=== PATIENT | male | born 1975 | race Caucasian/White ===

== ENCOUNTER → 2016-06-13 | Outpatient (CLI) | payer OTHER, MEDICAID ==
[2015-07-05 00:42] VITALS: BP 110/64
[2016-06-13 13:25] LABS: CREATININE,URINE 245.39 mg/dL (40-278)
[2016-06-13 13:26] LABS: BASOPHILS # (AUTO) 0.1 X10^3/uL (0.0-0.1); BASOPHILS % (AUTO) 1.2 % (0.2-1.0); EOSINOPHILS # (AUTO) 0.3 x10^3/uL (0.0-0.2); EOSINOPHILS % (AUTO) 2.3 % (0.9-2.9); HEMATOCRIT 46.9 % (42.0-54.0); HEMOGLOBIN 16.1 g/dL (13.5-18.0); LYMPHOCYTES # (AUTO) 2.4 X10^3/uL (1.3-2.9); LYMPHOCYTES % (AUTO) 21.4 % (21.0-51.0); MEAN CORPUSCULAR HEMOGLOBIN 28.5 pg (27.0-34.0); MEAN CORPUSCULAR HGB CONC 34.3 g/dL (33.0-35.0); MEAN PLATELET VOLUME 6.9 fL (7.4-11.0); MONOCYTES # (AUTO) 0.8 x10^3/uL (0.3-0.8); MONOCYTES % (AUTO) 7.3 % (0.0-13.0); NEUTROPHILS # (AUTO) 7.5 x10^3/uL (2.2-4.8); NEUTROPHILS % (AUTO) 67.8 % (42.0-75.0); PLATELET COUNT 209 X10^3/uL (150.0-450.0); RED BLOOD COUNT 5.65 X10^6/uL (4.7-6.0); RED CELL DISTRIBUTION WIDTH 13.8 % (11.6-16.5); WHITE BLOOD COUNT 11.1 X10^3/uL (3.6-10.0)
[2016-06-13 13:29] LABS: HEMOGLOBIN A1C 6.2 % (4.5-6.2)
[2016-06-13 13:33] LABS: MICROALBUMIN,URINE 8.1 mg/L
[2016-06-13 13:34] LABS: ALANINE AMINOTRANSFERASE 37 Units/L (12-78); ALBUMIN 4.1 g/dL (3.4-5.0); ALKALINE PHOSPHATASE 91 Units/L (46-116); ASPARTATE AMINO TRANSFERASE 18 Units/L (15-37); BLOOD UREA NITROGEN 15 mg/dL (7-18); CALCIUM 9.1 mg/dL (8.5-10.1); CARBON DIOXIDE 25.3 mmol/L (21-32); CHLORIDE 103 mmol/L (98-107); CHOL/HDL RATIO 8.7 (0.0-5.0); CHOLESTEROL 235 mg/dL (0-200); COR NA(FOR HYPERGLY) 137 mmol/L (136-145); GLUCOSE 118 mg/dL (65-99); HDL CHOLESTEROL 27 mg/dL (40-60); SODIUM 137 mmol/L (136-145); TOTAL PROTEIN 7.5 g/dL (6.4-8.2); TRIGLYCERIDES 275 mg/dL (0-150); eGFR BLACK RACES > 60 (>60); eGFR NON BLACK RACES > 60 (>60)
== END ==
LOC: LAB 12:31
PROVIDERS: ATTEND Obstetrics & Gynecology Obstetrics
DX: E11.9 Type 2 diabetes mellitus without complications (principal)
CPT/HCPCS: 36415; 80053; 80061; 82043; 83036; 85025

== ENCOUNTER 2018-03-09 23:59 | Inpatient (IN) ==
[2018-03-10 00:08] VITALS: BMI 38.4
[2018-03-10] MEDS ORDERED: ZOFRAN INJ 4 MG VIAL ONE (00:11)
[2018-03-10] MEDS ORDERED: ZOFRAN INJ 4 MG VIAL IVP ONE (00:11)
[2018-03-10 00:28] LABS: BASOPHILS # (AUTO) 0.1 X10^3/uL (0.0-0.1); BASOPHILS % (AUTO) 0.6 % (0.2-1.0); EOSINOPHILS # (AUTO) 0.2 x10^3/uL (0.0-0.2); EOSINOPHILS % (AUTO) 1.1 % (0.9-2.9); HEMATOCRIT 50.7 % (42.0-54.0); HEMOGLOBIN 17.2 g/dL (13.5-18.0); LYMPHOCYTES # (AUTO) 1.8 X10^3/uL (1.3-2.9); LYMPHOCYTES % (AUTO) 10.4 % (21.0-51.0); MEAN CORPUSCULAR HEMOGLOBIN 29.7 pg (27.0-34.0); MEAN CORPUSCULAR HGB CONC 33.9 g/dL (33.0-35.0); MEAN CORPUSCULAR VOLUME 87.7 fL (80.0-100.0); MEAN PLATELET VOLUME 7.6 fL (7.4-11.0); MONOCYTES # (AUTO) 1.3 x10^3/uL (0.3-0.8); MONOCYTES % (AUTO) 7.5 % (0.0-13.0); NEUTROPHILS # (AUTO) 14.1 x10^3/uL (2.2-4.8); NEUTROPHILS % (AUTO) 80.4 % (42.0-75.0); PLATELET COUNT 240 X10^3/uL (150.0-450.0); RED BLOOD COUNT 5.78 X10^6/uL (4.7-6.0); WHITE BLOOD COUNT 17.5 X10^3/uL (3.6-10.0)
[2018-03-10] MEDS ORDERED: LEVSIN/MAALOX/LIDOC VISC ONE (00:40)
[2018-03-10] MEDS ORDERED: LEVSIN/MAALOX/LIDOC VISC PO ONE (00:43)
[2018-03-10 00:46] LABS: BLOOD UREA NITROGEN 10 mg/dL (7-18); CALCIUM 8.5 mg/dL (8.5-10.1); CARBON DIOXIDE 23.9 mmol/L (21-32); CHLORIDE 108 mmol/L (98-107); COR NA(FOR HYPERGLY) 147 mmol/L (136-145); SODIUM 143 mmol/L (136-145); TROPONIN I < 0.02 ng/mL (0-1.5); eGFR NON BLACK RACES > 60 (>60)
[2018-03-10 00:51] LABS: ALANINE AMINOTRANSFERASE 326 Units/L (12-78); ALBUMIN 3.6 g/dL (3.4-5.0); ALKALINE PHOSPHATASE 126 Units/L (46-116); ASPARTATE AMINO TRANSFERASE 315 Units/L (15-37); CKMB % 1.4 % (<4); CREATINE KINASE 101 Units/L (39-308); CREATINE KINASE MB 1.4 ng/mL (0-4.0); TOTAL PROTEIN 6.7 g/dL (6.4-8.2)
--- NOTE | 2018-03-10 01:36 | RAD ---
Acute abdominal series with single-view chest Indication: Vomiting, abdominal pain Comparison: 11/02/2017 Findings: The heart size is normal and the lungs are clear. No significant pleural abnormality. The bowel gas pattern is nonspecific. No significantly dilated bowel loops identified. No suspicious calcifications or gross free air. Impression: No acute process. Reported By:
[2018-03-10] MEDS ORDERED: MORPHINE SULFATE INJ 4 MG IVP ONE (01:58)
[2018-03-10] MEDS ORDERED: MORPHINE SULFATE INJ 4 MG ONE (02:00)
--- NOTE | 2018-03-10 02:00 | DR.ABDMALE ---
HPI Time seen Time Seen by Provider: 03/10/18 00:39 PCP Primary Care Physician: TRENTON HPI comment HPI Comment: HISTORY OF PACREATITIS IN OCTOBER THIS YEAR. SIMILAR PAIN THAT STARTED TODAY. PAIN ASSOCIATED WITH NAUSEA AND VOMITING. NO DYSURIA OR FEVER. PAIN IS GETTING WORSE. Complaint Chief Complaint Doctors Comments: SEVERE UPPER ABDOMINAL PAIN WITH NAUSEA AND VOMITING. Chief Complaint:: " MY STOMACH HURTS IN MY UPPER STOMACH I CANT EXPLAIN IT." Reviewed Nurses Notes Review: Yes Mode of arrival Mode of Arrival: Ambulatory Timing Onset of Chief Complaint: 03/10/18 Came on: Suddenly Duration Duration: Constant Duration: Days Location Location: RUQ, LUQ and Epigastric Severity Severity: Moderate Quality Quality: Sharp Context Onset: Suddenly and At Rest History of: None Modifying factors Worsening Factors: Exertion, Food and Movement Improving Factors: Lying Still Associated signs and symptoms Associated Signs and Symptoms: Nausea and Vomiting PMH PMH Past Medical History: Yes Past Medical History: Diabetes and GERD Past Surgical History: No Surgical History: Unknown Family History History of Family Medical Conditions: Yes Family Medical History: Diabetes Mellitus and Cancer Social History Alcohol Use: None Do you use any recreational Drugs:: No infectious screening Have you traveled outside the country in the last 6 months?: No ROS Review of Systems Constitutional: Weakness, Fatigue and Loss of Appetite; negative Chills and Fev er Eyes: No Symptoms Reported ENTM: No Symptoms Reported Respiratoy: No Symptoms Reported Cardiovascular: No Symptoms Reported Gastrointestinal/Abdominal: Abdominal Pain, Nausea and Vomiting Genitourinary: No Symptoms Reported Neurological: Headache and Weakness Musculoskeletal: No Symptoms Reported Integumentary: No Symptoms Reported Hematologic/Lymphatic: No Symptoms Reported Endocrine: No Symptoms Reported Psychiatric: No Symptoms Reported All Other Systems: Reviewed and Negative PE Vital Signs Vital Signs: Temp Pulse Pulse Pulse Resp BP BP 03/10/18 06:06 98.5 F 74 18 132/78 03/10/18 05:00 67 20 03/10/18 00:03 98.4 F 87 20 107/75 11/02/17 19:52 135/72 BP Pulse Ox 03/10/18 06:06 03/10/18 05:00 129/82 97 03/10/18 00:03 99 11/02/17 19:52 135/72 General Limitations: No Limitations (PATIENT IN PAIN.) General Appearance: Alert, In No Apparent Distress and Anxious Head Head Exam: Normal Inspection Eyes Eye exam: Normal Appearance, PERRL, EOMI and Conjunctival Injection ENT ENT Exam: Normal Oropharynx, Normal External Ear Exam and TM's Normal Bilaterally Neck Neck Exam: Trachea Midline; negative Tenderness, Meningismus and Lymphadenopathy Chest Chest Inspection: Symmetric Chest Wall Rise Respiratory Respiratory Exam: Normal Lung Sounds Bilat Respiratory Exam: Bilateral: Clear to Auscultation Cardiovascular Cardiovascular Exam: Regular Rate and Normal Rhythm Abdominal Exam Abdominal Exam: Normal Bowel Sounds, Soft and Tenderness Abdominal Tenderness: RUQ, LUQ, Epigastrium and Moderate Rectal Rectal Exam: Deferred Back Back Exam: Normal Inspection Extremeties Extremities Exam: Normal Inspection and Normal Capillary Refill Exam: Male: Deferred Neurologic Neurological Exam: Alert, Oriented X3 and CN II-XII Intact; negative Motor Se nsory Deficit Psychiatric Psychiatric Exam: Normal Affect and Anxious Skin Skin Exam: Dry MDM Differential Diagnosis Differential Diagnosis: Bowel Obstruction, Cholcystitis, Cholelethiasis, Constipation, Diverticular disease, Gastritus/PUD, Pancreatitis, Urinary tract infection and Urolithiasis COURSE Treatment Treatment: SEE ORDERS. Reevaluation 1st: Improved Consultation Consultation Comments: DISCUSS PATIENT WITH DR. CHOWDHURY. HE WILL ADMIT PATIENT. Education/Counseling Education/Counseling: Patient Educated On: Diagnosis ROR Labs Reviewed Laboratory Results Reviewed?: Yes Result Diagrams: 03/10/18 00:08 03/10/18 00:08 Laboratory: WBC 17.5 X10^3/uL (3.6-10.0) H 03/10/18 00:08 RBC 5.78 X10^6/uL (4.7-6.0) 03/10/18 00:08 Hgb 17.2 g/dL (13.5-18.0) 03/10/18 00:08 Hct 50.7 % (42.0-54.0) 03/10/18 00:08 MCV 87.7 fL (80.0-100.0) 03/10/18 00:08 MCH 29.7 pg (27.0-34.0) 03/10/18 00:08 MCHC 33.9 g/dL (33.0-35.0) 03/10/18 00:08 RDW 14.0 % (11.6-16.5) 03/10/18 00:08 Plt Count 240 X10^3/uL (150.0-450.0) 03/10/18 00:08 MPV 7.6 fL (7.4-11.0) 03/10/18 00:08 Neut % (Auto) 80.4 % (42.0-75.0) H 03/10/18 00:08 Lymph % (Auto) 10.4 % (21.0-51.0) L 03/10/18 00:08 [place] % (Auto) 7.5 % (0.0-13.0) 03/10/18 00:08 Eos % (Auto) 1.1 % (0.9-2.9) 03/10/18 00:08 Baso % (Auto) 0.6 % (0.2-1.0) 03/10/18 00:08 Neut # (Auto) 14.1 x10^3/uL (2.2-4.8) H 03/10/18 00:08 Lymph # (Auto) 1.8 X10^3/uL (1.3-2.9) 03/10/18 00:08 [place] # (Auto) 1.3 x10^3/uL (0.3-0.8) H 03/10/18 00:08 Eos # (Auto) 0.2 x10^3/uL (0.0-0.2) 03/10/18 00:08 Baso # (Auto) 0.1 X10^3/uL (0.0-0.1) 03/10/18 00:08 Absolute Nucleated RBC 0.1 /100WBC 03/10/18 00:08 Sodium 143 mmol/L (136-145) 03/10/18 00:08 Corrected Sodium 147 mmol/L (136-145) H 03/10/18 00:08 Potassium 3.6 mmol/L (3.5-5.1) 03/10/18 00:08 Chloride 108 mmol/L (98-107) H 03/10/18 00:08 Carbon Dioxide 23.9 mmol/L (21-32) 03/10/18 00:08 BUN 10 mg/dL (7-18) 03/10/18 00:08 Creatinine 1.00 mg/dL (0.70-1.30) 03/10/18 00:08 Est GFR (MDRD) Af Amer > 60 (>60) 03/10/18 00:08 Est GFR (MDRD) Non-Af > 60 (>60) 03/10/18 00:08 Glucose 250 mg/dL (65-99) H 03/10/18 00:08 POC Glucose (mg/dL) 167 mg/dL (65-99) H 03/10/18 06:01 Calcium 8.5 mg/dL (8.5-10.1) 03/10/18 00:08 Corrected Calcium TNP 03/10/18 00:08 Total Bilirubin 2.80 mg/dL (0.2-1.0) H 03/10/18 00:08 AST 315 Units/L (15-37) H 03/10/18 00:08 ALT 326 Units/L (12-78) H 03/10/18 00:08 Alkaline Phosphatase 126 Units/L (46-116) H 03/10/18 00:08 Creatine Kinase 101 Units/L (39-308) 03/10/18 00:08 CK-MB (CK-2) 1.4 ng/mL (0-4.0) 03/10/18 00:08 CK/CKMB % Calc 1.4 % (<4) 03/10/18 00:08 Troponin I < 0.02 ng/mL (0-1.5) 03/10/18 00:08 Total Protein 6.7 g/dL (6.4-8.2) 03/10/18 00:08 Albumin 3.6 g/dL (3.4-5.0) 03/10/18 00:08 Globulin 3.1 g/dL (2.5-4.5) 03/10/18 00:08 Albumin/Globulin Ratio 1.2 Ratio (1.1-2.1) 03/10/18 00:08 Amylase 821 Units/L (25-115) H 03/10/18 00:08 Lipase 92209 Units/L (73-393) H 03/10/18 00:08 Specimen Type Clean catch urine 03/10/18 03:23 Urine Color Dark yellow (YELLOW) 03/10/18 03:23 Urine Appearance Clear (CLEAR) 03/10/18 03:23 Urine pH 5.0 (5.0 - 8.0) 03/10/18 03:23 Ur Specific [place] 1.020 (1.000-1.030) 03/10/18 03:23 Urine Protein 1+ (NEGATIVE) 03/10/18 03:23 Urine Glucose (UA) 4+ (NEGATIVE) 03/10/18 03:23 Urine Ketones Negative (NEGATIVE) 03/10/18 03:23 Urine Occult Blood Negative (NEGATIVE) 03/10/18 03:23 Urine Nitrite Negative (NEGATIVE) 03/10/18 03:23 Urine Bilirubin 1+ (NEGATIVE) 03/10/18 03:23 Urine Urobilinogen 1+ (NORMAL) 03/10/18 03:23 Ur Leukocyte Esterase Negative (NEGATIVE) 03/10/18 03:23 Urine RBC 0-2 /HPF (NONE SEEN) 03/10/18 03:23 Urine WBC 0-2 /HPF (NONE SEEN) 03/10/18 03:23 Ur Squamous Epith Cells Few /HPF (NEGATIVE) 03/10/18 03:23 Urine Bacteria Trace /HPF (NEGATIVE) 03/10/18 03:23 Ur Culture Indicated? No/not indicated 03/10/18 03:23 XRAY XRAY Interpreted by: Radiologist XRAY Findings: REPORT DISCUSS WITH PATIENT.
[2018-03-10 03:33] LABS: BILIRUBIN,URINE 1+ (NEGATIVE); BLOOD/HEMOGLOBIN,URINE NEGATIVE (NEGATIVE); GLUCOSE, URINE 4+ (NEGATIVE); KETONES,URINE NEGATIVE (NEGATIVE); LEUKOCYTE ESTERASE ,URINE NEGATIVE (NEGATIVE); NITRITES,URINE NEGATIVE (NEGATIVE); PROTEIN,URINE 1+ (NEGATIVE); UROBILINOGEN,URINE 1+ (NORMAL)
[2018-03-10 03:42] LABS: APPEARANCE,URINE CLEAR (CLEAR); COLOR,URINE DARK YELLOW (YELLOW); RBC,URINE 0-2 /HPF (NONE SEEN)
[2018-03-10 03:43] LABS: BACTERIA,URINE TRACE /HPF (NEGATIVE); SQUAMOUS EPITHELIAL CELL,UR FEW /HPF (NEGATIVE)
[2018-03-10 04:12] LABS: AMYLASE 821 Units/L (25-115); LIPASE 28763 Units/L (73-393)
[2018-03-10] MEDS ORDERED: ZOFRAN INJ 4 MG VIAL IVP PRN (05:16)
[2018-03-10] MEDS ORDERED: PEPCID 20 MG IV PREMIX* 20 MG/50 ML BAG IV PRN (05:16)
[2018-03-10] MEDS ORDERED: NS 1000 ML 1,000 ML ONE (05:26)
[2018-03-10] MEDS ORDERED: PATIENT'S HOME MEDICATION (Dexlansoprazole [Dexlansoprazole] 60 MG) PO SCH (05:59)
[2018-03-10] MEDS: NS 1000 ML 1,000 ML IV SCH ×3 (06:09→23:56)
[2018-03-10] MEDS: MORPHINE SULFATE INJ 2 MG INJ IVP PRN (06:25)
[2018-03-10 06:41] LABS: AMYLASE 391 Units/L (25-115)
[2018-03-10 07:44] LABS: LIPASE 9399 Units/L (73-393)
[2018-03-10] MEDS ORDERED: ASTELIN NASAL SPRAY ENOSTRIL ONE (08:51)
[2018-03-10] MEDS ORDERED: ASTELIN NASAL SPRAY ENOSTRIL SCH (09:00)
[2018-03-10] MEDS ORDERED: FLONASE NASAL SPRAY ENOSTRIL SCH (09:00)
[2018-03-10] MEDS: PROTONIX TAB 40 MG PO SCH (09:18)
[2018-03-10] MEDS: FLONASE NASAL SPRAY ENOSTRIL SCH (09:18)
[2018-03-10] MEDS: ASTELIN NASAL SPRAY ENOSTRIL SCH (09:18)
[2018-03-10] MEDS ORDERED: GLUCOPHAGE ONE ×2 (10:40→20:47)
[2018-03-10] MEDS: ACTOS PO SCH (10:57)
[2018-03-10] MEDS: GLUCOPHAGE PO SCH ×2 (10:58→20:43)
[2018-03-10] MEDS ORDERED: TYLENOL 325 MG TAB PO PRN (23:48)
[2018-03-10] MEDS ORDERED: TYLENOL 325 MG TAB PO ONE (23:53)
[2018-03-11] MEDS: NS 1000 ML 1,000 ML IV SCH ×3 (05:25→23:00)
[2018-03-11 05:28] LABS: BASOPHILS # (AUTO) 0.1 X10^3/uL (0.0-0.1); BASOPHILS % (AUTO) 0.7 % (0.2-1.0); EOSINOPHILS # (AUTO) 0.1 x10^3/uL (0.0-0.2); EOSINOPHILS % (AUTO) 0.9 % (0.9-2.9); HEMATOCRIT 47.2 % (42.0-54.0); LYMPHOCYTES # (AUTO) 1.6 X10^3/uL (1.3-2.9); LYMPHOCYTES % (AUTO) 12.7 % (21.0-51.0); MEAN CORPUSCULAR HEMOGLOBIN 29.5 pg (27.0-34.0); MEAN CORPUSCULAR HGB CONC 33.9 g/dL (33.0-35.0); MEAN CORPUSCULAR VOLUME 86.9 fL (80.0-100.0); MEAN PLATELET VOLUME 7.2 fL (7.4-11.0); MONOCYTES % (AUTO) 8.1 % (0.0-13.0); NEUTROPHILS # (AUTO) 9.9 x10^3/uL (2.2-4.8); NEUTROPHILS % (AUTO) 77.6 % (42.0-75.0); PLATELET COUNT 185 X10^3/uL (150.0-450.0); RED BLOOD COUNT 5.44 X10^6/uL (4.7-6.0); RED CELL DISTRIBUTION WIDTH 13.6 % (11.6-16.5); WHITE BLOOD COUNT 12.8 X10^3/uL (3.6-10.0)
[2018-03-11 05:44] LABS: ALANINE AMINOTRANSFERASE 182 Units/L (12-78); ALBUMIN 3.2 g/dL (3.4-5.0); ALKALINE PHOSPHATASE 117 Units/L (46-116); AMYLASE 168 Units/L (25-115); ASPARTATE AMINO TRANSFERASE 46 Units/L (15-37); BLOOD UREA NITROGEN 9 mg/dL (7-18); CALCIUM 8.5 mg/dL (8.5-10.1); CARBON DIOXIDE 25.4 mmol/L (21-32); CHLORIDE 106 mmol/L (98-107); COR CA(FOR HYPOALB) 9.1 mg/dL (8.5-10.1); CREATININE 0.86 mg/dL (0.70-1.30); SODIUM 140 mmol/L (136-145); TOTAL PROTEIN 6.2 g/dL (6.4-8.2); eGFR NON BLACK RACES > 60 (>60)
[2018-03-11 05:47] LABS: LIPASE 1781 Units/L (73-393)
[2018-03-11] MEDS ORDERED: GLUCOPHAGE ONE ×2 (07:44→20:23)
[2018-03-11] MEDS: FLONASE NASAL SPRAY ENOSTRIL SCH (08:10)
[2018-03-11] MEDS: GLUCOPHAGE PO SCH ×2 (08:10→20:28)
[2018-03-11] MEDS: ACTOS PO SCH (08:10)
[2018-03-11] MEDS: PROTONIX TAB 40 MG PO SCH (08:10)
[2018-03-11] MEDS: ASTELIN NASAL SPRAY ENOSTRIL SCH (08:10)
[2018-03-12] MEDS: MORPHINE SULFATE INJ 2 MG INJ IVP PRN (00:58)
[2018-03-12 06:13] LABS: BASOPHILS # (AUTO) 0.1 X10^3/uL (0.0-0.1); BASOPHILS % (AUTO) 0.6 % (0.2-1.0); EOSINOPHILS # (AUTO) 0.2 x10^3/uL (0.0-0.2); EOSINOPHILS % (AUTO) 1.8 % (0.9-2.9); HEMATOCRIT 46.8 % (42.0-54.0); HEMOGLOBIN 16.1 g/dL (13.5-18.0); LYMPHOCYTES % (AUTO) 15.9 % (21.0-51.0); MEAN CORPUSCULAR HEMOGLOBIN 29.6 pg (27.0-34.0); MEAN CORPUSCULAR HGB CONC 34.3 g/dL (33.0-35.0); MEAN CORPUSCULAR VOLUME 86.2 fL (80.0-100.0); MEAN PLATELET VOLUME 7.6 fL (7.4-11.0); MONOCYTES # (AUTO) 1.3 x10^3/uL (0.3-0.8); MONOCYTES % (AUTO) 10.1 % (0.0-13.0); NEUTROPHILS # (AUTO) 9.1 x10^3/uL (2.2-4.8); NEUTROPHILS % (AUTO) 71.6 % (42.0-75.0); PLATELET COUNT 201 X10^3/uL (150.0-450.0); RED BLOOD COUNT 5.43 X10^6/uL (4.7-6.0); WHITE BLOOD COUNT 12.7 X10^3/uL (3.6-10.0)
[2018-03-12 06:22] LABS: ALANINE AMINOTRANSFERASE 116 Units/L (12-78); ALBUMIN 3.4 g/dL (3.4-5.0); ALKALINE PHOSPHATASE 121 Units/L (46-116); AMYLASE 58 Units/L (25-115); ASPARTATE AMINO TRANSFERASE 18 Units/L (15-37); BLOOD UREA NITROGEN 7 mg/dL (7-18); CALCIUM 9.1 mg/dL (8.5-10.1); CARBON DIOXIDE 24.8 mmol/L (21-32); CHLORIDE 104 mmol/L (98-107); CREATININE 0.84 mg/dL (0.70-1.30); LIPASE 540 Units/L (73-393); SODIUM 138 mmol/L (136-145); TOTAL PROTEIN 7.1 g/dL (6.4-8.2); eGFR NON BLACK RACES > 60 (>60)
[2018-03-12] MEDS: NS 1000 ML 1,000 ML IV SCH (06:47)
[2018-03-12] MEDS ORDERED: GLUCOPHAGE ONE (08:19)
[2018-03-12] MEDS: PROTONIX TAB 40 MG PO SCH (08:53)
[2018-03-12] MEDS: ACTOS PO SCH (08:54)
[2018-03-12] MEDS: GLUCOPHAGE PO SCH (08:54)
[2018-03-12] MEDS: FLONASE NASAL SPRAY ENOSTRIL SCH (08:55)
[2018-03-12] MEDS: ASTELIN NASAL SPRAY ENOSTRIL SCH (08:55)
[2018-03-12 13:35] VITALS: BP 113/67
== END 2018-03-12 13:00 | disposition home or self-care (01) | DRG 440 ==
LOC: ER 23:59 → MED/SURG 03-10 05:10
PROVIDERS: ADMIT Obstetrics & Gynecology Obstetrics; ATTEND Obstetrics & Gynecology Obstetrics
DX: K21.9 Gastro-esophageal reflux disease without esophagitis; R11.2 Nausea with vomiting, unspecified; R10.13 Epigastric pain; R82.998 Other abnormal findings in urine; E11.8 Type 2 diabetes mellitus with unspecified complications; M54.9 Dorsalgia, unspecified; K85.90 Acute pancreatitis without necrosis or infection, unspecified; I10 Essential (primary) hypertension
CPT/HCPCS: 36415; 74022; 80053; 81001; 82150; 82550; 82553; 83690; 84484; 85025; 96365; 96374; 96375; 99284; A4222; S0028; J2270; J2405; J3490; J7030

== ENCOUNTER 2018-06-23 13:00 | Inpatient (IN) ==
[2018-06-23 13:09] VITALS: BMI 34.7
[2018-06-23] MEDS ORDERED: ZOFRAN INJ 4 MG VIAL ONE (13:12)
[2018-06-23] MEDS ORDERED: DEMEROL INJ IVP ONE (13:12)
[2018-06-23] MEDS ORDERED: NS 1000 ML 1,000 ML IV ONE ×2 (13:12→13:13)
[2018-06-23] MEDS ORDERED: DEMEROL INJ ONE ×2 (13:13→15:20)
[2018-06-23] MEDS ORDERED: ZOFRAN INJ 4 MG VIAL IVP ONE (13:13)
[2018-06-23] MEDS ORDERED: NS 1000 ML 1,000 ML ONE (13:14)
--- NOTE | 2018-06-23 13:18 | DR.ABDMALE ---
HPI Time seen Time Seen by Provider: 06/23/18 13:08 PCP Primary Care Physician: lukas GARAY comment HPI Comment: A 43 y/o male presenting with epigastric abdominal pain since yesterday evening. He has nausea with associated vomiting. Complaint Chief Complaint:: PT C/O ABD PAIN SINCE YESTERDAY Reviewed Nurses Notes Review: Yes Mode of arrival Mode of Arrival: Wheelchair Timing Onset of Chief Complaint: 06/23/18 PMH PMH Past Medical History: Yes Past Medical History: Diabetes and GERD Past Surgical History: No Surgical History: Unknown Family History History of Family Medical Conditions: Yes Family Medical History: Diabetes Mellitus and Cancer Social History Does patient currently use any type of tobacco product: Yes Have you used tobacco products in the last 12 months: Yes Type of Tobacco Use: Cigarettes Alcohol Use: None Do you use any recreational Drugs:: No Lives With: Family Lives Where: Home infectious screening In the last 2 months have you had wt loss of >10#?: NO Have you had fever, night sweats or hemotysis?: No Have you traveled outside the country in the last 6 months?: No Isolation: Standard ROS Review of Systems Constitutional: No Symptoms Reported Eyes: No Symptoms Reported ENTM: No Symptoms Reported Respiratoy: No Symptoms Reported Cardiovascular: No Symptoms Reported Gastrointestinal/Abdominal: Abdominal Pain, Nausea and Vomiting; negative No Symptoms Reported, See HPI, Constipation, Diarrhea and Food Intolerance Genitourinary: No Symptoms Reported Neurological: No Symptoms Reported Musculoskeletal: No Symptoms Reported Integumentary: No Symptoms Reported Hematologic/Lymphatic: No Symptoms Reported Endocrine: No Symptoms Reported Psychiatric: No Symptoms Reported PE Vital Signs Vital Signs: Temp Pulse Resp BP BP BP Pulse Ox 06/23/18 13:15 20 06/23/18 13:03 97.5 F L 56 L 20 106/52 99 03/12/18 12:00 113/67 113/67 03/10/18 05:00 129/82 General Limitations: No Limitations General Appearance: Alert and In No Apparent Distress Head Head Exam: Normal Inspection, Atraumatic and Normocephalic Eyes Eye exam: Normal Appearance and EOMI ENT ENT Exam: Normal Exam, Normal Oropharynx and Mucous Membranes Moist Neck Neck Exam: Normal Inspection, Full ROM and Trachea Midline Chest Chest Inspection: Normal Inspection and Symmetric Chest Wall Rise Respiratory Respiratory Exam: Normal Lung Sounds Bilat Cardiovascular Cardiovascular Exam: Regular Rate, Normal Rhythm, +S1 and +S2 Abdominal Exam Abdominal Exam: Normal Inspection, Normal Bowel Sounds, Soft and Tenderness Abdominal Tenderness: Epigastrium Rectal Rectal Exam: Deferred Back Back Exam: Normal Inspection Extremeties Extremities Exam: Normal Inspection Exam: Male: Deferred Neurologic Neurological Exam: Alert Psychiatric Psychiatric Exam: Normal Affect and Normal Mood Skin Skin Exam: Warm, Dry and Normal Color COURSE Reevaluation 1st: Improved Education/Counseling Education/Counseling: Patient, Family, Education and Counseling Educated On: Treatment, Diagnosis, Prognosis and Needs for Follow Up ROR Labs Reviewed Result Diagrams: 06/23/18 13:20 06/23/18 13:20 Laboratory: WBC 14.3 X10^3/uL (3.6-10.0) H 06/23/18 13:20 RBC 5.91 X10^6/uL (4.7-6.0) 06/23/18 13:20 Hgb 17.9 g/dL (13.5-18.0) 06/23/18 13:20 Hct 51.5 % (42.0-54.0) 06/23/18 13:20 MCV 87.0 fL (80.0-100.0) 06/23/18 13:20 MCH 30.2 pg (27.0-34.0) 06/23/18 13:20 MCHC 34.8 g/dL (33.0-35.0) 06/23/18 13:20 RDW 14.8 % (11.6-16.5) 06/23/18 13:20 Plt Count 237 X10^3/uL (150.0-450.0) 06/23/18 13:20 MPV 7.5 fL (7.4-11.0) 06/23/18 13:20 Neut % (Auto) 78.9 % (42.0-75.0) H 06/23/18 13:20 Lymph % (Auto) 11.8 % (21.0-51.0) L 06/23/18 13:20 [place] % (Auto) 8.6 % (0.0-13.0) 06/23/18 13:20 Eos % (Auto) 0.3 % (0.9-2.9) L 06/23/18 13:20 Baso % (Auto) 0.4 % (0.2-1.0) 06/23/18 13:20 Neut # (Auto) 11.3 x10^3/uL (2.2-4.8) H 06/23/18 13:20 Lymph # (Auto) 1.7 X10^3/uL (1.3-2.9) 06/23/18 13:20 [place] # (Auto) 1.2 x10^3/uL (0.3-0.8) H 06/23/18 13:20 Eos # (Auto) 0.0 x10^3/uL (0.0-0.2) 06/23/18 13:20 Baso # (Auto) 0.1 X10^3/uL (0.0-0.1) 06/23/18 13:20 Absolute Nucleated RBC 0.0 /100WBC 06/23/18 13:20 Sodium 142 mmol/L (136-145) 06/23/18 13:20 Corrected Sodium 144 mmol/L (136-145) 06/23/18 13:20 Potassium 3.8 mmol/L (3.5-5.1) 06/23/18 13:20 Chloride 105 mmol/L (98-107) 06/23/18 13:20 Carbon Dioxide 24.7 mmol/L (21-32) 06/23/18 13:20 BUN 14 mg/dL (7-18) 06/23/18 13:20 Creatinine 1.24 mg/dL (0.70-1.30) 06/23/18 13:20 Est GFR (MDRD) Af Amer > 60 (>60) 06/23/18 13:20 Est GFR (MDRD) Non-Af > 60 (>60) 06/23/18 13:20 Glucose 170 mg/dL (65-99) H 06/23/18 13:20 Calcium 9.1 mg/dL (8.5-10.1) 06/23/18 13:20 Corrected Calcium TNP 06/23/18 13:20 Total Bilirubin 4.50 mg/dL (0.2-1.0) H 06/23/18 13:20 AST 103 Units/L (15-37) H 06/23/18 13:20 ALT 167 Units/L (12-78) H 06/23/18 13:20 Alkaline Phosphatase 125 Units/L (46-116) H 06/23/18 13:20 Total Protein 7.0 g/dL (6.4-8.2) 06/23/18 13:20 Albumin 3.9 g/dL (3.4-5.0) 06/23/18 13:20 Globulin 3.1 g/dL (2.5-4.5) 06/23/18 13:20 Albumin/Globulin Ratio 1.3 Ratio (1.1-2.1) 06/23/18 13:20 Amylase 813 Units/L (25-115) H 06/23/18 13:20 Lipase 39295 Units/L (73-393) H 06/23/18 13:20 Diagnosis Discharge Problem: Acute recurrent pancreatitis
[2018-06-23 13:34] LABS: BASOPHILS # (AUTO) 0.1 X10^3/uL (0.0-0.1); BASOPHILS % (AUTO) 0.4 % (0.2-1.0); EOSINOPHILS % (AUTO) 0.3 % (0.9-2.9); HEMATOCRIT 51.5 % (42.0-54.0); HEMOGLOBIN 17.9 g/dL (13.5-18.0); LYMPHOCYTES # (AUTO) 1.7 X10^3/uL (1.3-2.9); LYMPHOCYTES % (AUTO) 11.8 % (21.0-51.0); MEAN CORPUSCULAR HEMOGLOBIN 30.2 pg (27.0-34.0); MEAN CORPUSCULAR HGB CONC 34.8 g/dL (33.0-35.0); MEAN PLATELET VOLUME 7.5 fL (7.4-11.0); MONOCYTES # (AUTO) 1.2 x10^3/uL (0.3-0.8); MONOCYTES % (AUTO) 8.6 % (0.0-13.0); NEUTROPHILS # (AUTO) 11.3 x10^3/uL (2.2-4.8); NEUTROPHILS % (AUTO) 78.9 % (42.0-75.0); PLATELET COUNT 237 X10^3/uL (150.0-450.0); RED BLOOD COUNT 5.91 X10^6/uL (4.7-6.0); RED CELL DISTRIBUTION WIDTH 14.8 % (11.6-16.5); WHITE BLOOD COUNT 14.3 X10^3/uL (3.6-10.0)
[2018-06-23 13:48] LABS: ALANINE AMINOTRANSFERASE 167 Units/L (12-78); ALBUMIN 3.9 g/dL (3.4-5.0); ALKALINE PHOSPHATASE 125 Units/L (46-116); ASPARTATE AMINO TRANSFERASE 103 Units/L (15-37); BLOOD UREA NITROGEN 14 mg/dL (7-18); CALCIUM 9.1 mg/dL (8.5-10.1); CARBON DIOXIDE 24.7 mmol/L (21-32); CHLORIDE 105 mmol/L (98-107); COR NA(FOR HYPERGLY) 144 mmol/L (136-145); CREATININE 1.24 mg/dL (0.70-1.30); SODIUM 142 mmol/L (136-145); eGFR NON BLACK RACES > 60 (>60)
[2018-06-23 13:54] LABS: AMYLASE 813 Units/L (25-115)
[2018-06-23 14:31] LABS: LIPASE 20519 Units/L (73-393)
[2018-06-23] MEDS ORDERED: PHENERGAN INJ 25 MG IM PRN (15:04)
[2018-06-23] MEDS: DEMEROL INJ IVP PRN ×2 (15:25→23:14)
[2018-06-23] MEDS ORDERED: PATIENT'S HOME MEDICATION (Levocetirizine [Levocetirizine] 1 TAB) PO PRN (15:56)
[2018-06-23] MEDS ORDERED: PATIENT'S HOME MEDICATION (Dexlansoprazole [Dexlansoprazole] 60 MG) PO SCH (15:56)
[2018-06-23] MEDS ORDERED: HumuLIN R SC PRN (15:56)
[2018-06-23] MEDS: NS 1000 ML 1,000 ML IV SCH ×2 (15:57→23:17)
[2018-06-23] MEDS ORDERED: ZyrTEC TAB 10 MG PO PRN (16:26)
[2018-06-23] MEDS ORDERED: GLUCOPHAGE ONE (19:34)
[2018-06-23] MEDS: NICOTINE PATCH TD SCH (20:28)
[2018-06-23] MEDS: ZANTAC PO SCH (20:29)
[2018-06-23] MEDS: GLUCOPHAGE PO SCH (20:29)
[2018-06-23] MEDS ORDERED: PATIENT'S HOME MEDICATION (Ranitidine Hcl 150 MG) PO SCH (21:00)
[2018-06-24 06:18] LABS: BASOPHILS # (AUTO) 0.1 X10^3/uL (0.0-0.1); BASOPHILS % (AUTO) 0.4 % (0.2-1.0); EOSINOPHILS % (AUTO) 0.2 % (0.9-2.9); HEMATOCRIT 50.6 % (42.0-54.0); HEMOGLOBIN 17.6 g/dL (13.5-18.0); LYMPHOCYTES # (AUTO) 1.2 X10^3/uL (1.3-2.9); LYMPHOCYTES % (AUTO) 7.8 % (21.0-51.0); MEAN CORPUSCULAR HEMOGLOBIN 30.4 pg (27.0-34.0); MEAN CORPUSCULAR HGB CONC 34.8 g/dL (33.0-35.0); MEAN CORPUSCULAR VOLUME 87.4 fL (80.0-100.0); MEAN PLATELET VOLUME 7.7 fL (7.4-11.0); MONOCYTES % (AUTO) 6.7 % (0.0-13.0); NEUTROPHILS % (AUTO) 84.9 % (42.0-75.0); PLATELET COUNT 190 X10^3/uL (150.0-450.0); RED BLOOD COUNT 5.79 X10^6/uL (4.7-6.0); RED CELL DISTRIBUTION WIDTH 14.7 % (11.6-16.5); WHITE BLOOD COUNT 15.3 X10^3/uL (3.6-10.0)
[2018-06-24 06:45] LABS: ALANINE AMINOTRANSFERASE 145 Units/L (12-78); ALBUMIN 3.6 g/dL (3.4-5.0); ALKALINE PHOSPHATASE 126 Units/L (46-116); AMYLASE 480 Units/L (25-115); ASPARTATE AMINO TRANSFERASE 65 Units/L (15-37); BLOOD UREA NITROGEN 11 mg/dL (7-18); CALCIUM 8.7 mg/dL (8.5-10.1); CARBON DIOXIDE 23.2 mmol/L (21-32); CHLORIDE 107 mmol/L (98-107); COR NA(FOR HYPERGLY) 143 mmol/L (136-145); CREATININE 1.03 mg/dL (0.70-1.30); SODIUM 143 mmol/L (136-145); TOTAL PROTEIN 6.8 g/dL (6.4-8.2); eGFR NON BLACK RACES > 60 (>60)
[2018-06-24] MEDS: DEMEROL INJ IVP PRN (06:59)
[2018-06-24] MEDS: NS 1000 ML 1,000 ML IV SCH ×3 (07:02→17:35)
[2018-06-24 07:22] LABS: LIPASE 8853 Units/L (73-393)
[2018-06-24] MEDS ORDERED: ASTELIN NASAL SPRAY ONE (08:43)
[2018-06-24] MEDS: ROCEPHIN VIAL 1 GRAM IVP SCH (09:00)
[2018-06-24] MEDS: FLONASE NASAL SPRAY ENOSTRIL SCH (09:01)
[2018-06-24] MEDS: ASTELIN NASAL SPRAY ENOSTRIL SCH (09:01)
[2018-06-24] MEDS: NICOTINE PATCH TD SCH (09:09)
[2018-06-24] MEDS: GLUCOPHAGE PO SCH ×2 (09:09→20:00)
[2018-06-24] MEDS: LEXAPRO PO SCH (09:09)
[2018-06-24] MEDS: ZANTAC PO SCH ×2 (09:09→20:00)
[2018-06-24] MEDS: PROTONIX TAB 40 MG PO SCH (09:09)
[2018-06-24] MEDS: ACTOS PO SCH (09:09)
[2018-06-24] MEDS ORDERED: D50W ABBOJECT SYR IV ONE ×2 (19:40→19:44)
[2018-06-25] MEDS: NS 1000 ML 1,000 ML IV SCH ×4 (01:17→10:35)
[2018-06-25 05:37] LABS: AMYLASE 142 Units/L (25-115); LIPASE 1177 Units/L (73-393)
[2018-06-25 06:19] LABS: BASOPHILS % (AUTO) 0.4 % (0.2-1.0); EOSINOPHILS # (AUTO) 0.1 x10^3/uL (0.0-0.2); EOSINOPHILS % (AUTO) 1.1 % (0.9-2.9); HEMATOCRIT 44.9 % (42.0-54.0); HEMOGLOBIN 15.4 g/dL (13.5-18.0); LYMPHOCYTES # (AUTO) 1.3 X10^3/uL (1.3-2.9); LYMPHOCYTES % (AUTO) 11.3 % (21.0-51.0); MEAN CORPUSCULAR HGB CONC 34.3 g/dL (33.0-35.0); MEAN CORPUSCULAR VOLUME 87.5 fL (80.0-100.0); MEAN PLATELET VOLUME 8.5 fL (7.4-11.0); MONOCYTES # (AUTO) 0.9 x10^3/uL (0.3-0.8); MONOCYTES % (AUTO) 8.4 % (0.0-13.0); NEUTROPHILS # (AUTO) 8.9 x10^3/uL (2.2-4.8); NEUTROPHILS % (AUTO) 78.8 % (42.0-75.0); PLATELET COUNT 169 X10^3/uL (150.0-450.0); RED BLOOD COUNT 5.13 X10^6/uL (4.7-6.0); RED CELL DISTRIBUTION WIDTH 14.5 % (11.6-16.5); WHITE BLOOD COUNT 11.4 X10^3/uL (3.6-10.0)
[2018-06-25] MEDS: NICOTINE PATCH TD SCH (09:45)
[2018-06-25] MEDS: PROTONIX TAB 40 MG PO SCH ×2 (09:46→10:34)
[2018-06-25] MEDS: GLUCOPHAGE PO SCH (09:46)
[2018-06-25] MEDS: ZANTAC PO SCH ×2 (09:46→10:35)
[2018-06-25] MEDS: ACTOS PO SCH ×2 (09:46→10:34)
[2018-06-25] MEDS: LEXAPRO PO SCH ×2 (09:46→10:35)
[2018-06-25] MEDS: ASTELIN NASAL SPRAY ENOSTRIL SCH (09:47)
[2018-06-25] MEDS: FLONASE NASAL SPRAY ENOSTRIL SCH (09:48)
[2018-06-25] MEDS: ROCEPHIN VIAL 1 GRAM IVP SCH (09:53)
[2018-06-25] MEDS ORDERED: LEXAPRO ONE (10:32)
[2018-06-25 13:30] VITALS: BP 140/72
== END 2018-06-25 15:20 | disposition home or self-care (01) | DRG 440 ==
LOC: ER 13:01 → MED/SURG 15:01
PROVIDERS: ADMIT Internal Medicine; ATTEND Obstetrics & Gynecology Obstetrics
DX: R10.84 Generalized abdominal pain; I10 Essential (primary) hypertension; K86.1 Other chronic pancreatitis; R11.2 Nausea with vomiting, unspecified; E11.65 Type 2 diabetes mellitus with hyperglycemia; K21.9 Gastro-esophageal reflux disease without esophagitis; K85.80 Other acute pancreatitis without necrosis or infection
CPT/HCPCS: 36415; 80053; 82150; 83690; 85025; 96365; 96374; 96375; 99284; A4222; J0696; J2175; J2405; J3490; J7030

== ENCOUNTER 2020-08-25 16:28 | Inpatient (IN) ==
[2020-08-25] MEDS ORDERED: VANCOMYCIN IV *PREMIX 1 G/200 ML BAG 1 G/200 ML PIGGYBACK IV ONE (17:14)
[2020-08-25] MEDS ORDERED: PHARMACY CONSULT - VANCOMYCIN XX SCH (18:00)
[2020-08-25 18:13] LABS: BASOPHILS # (AUTO) 0.1 X10^3/uL (0.0-0.1); BASOPHILS % (AUTO) 0.6 % (0.2-1.0); EOSINOPHILS # (AUTO) 0.4 x10^3/uL (0.0-0.2); EOSINOPHILS % (AUTO) 3.5 % (0.9-2.9); HEMATOCRIT 45.7 % (42.0-54.0); LYMPHOCYTES # (AUTO) 2.4 X10^3/uL (1.3-2.9); LYMPHOCYTES % (AUTO) 20.5 % (21.0-51.0); MEAN CORPUSCULAR HEMOGLOBIN 30.4 pg (27.0-34.0); MEAN CORPUSCULAR HGB CONC 35.1 g/dL (33.0-35.0); MEAN CORPUSCULAR VOLUME 86.5 fL (80.0-100.0); MEAN PLATELET VOLUME 6.8 fL (7.4-11.0); MONOCYTES % (AUTO) 8.8 % (0.0-13.0); NEUTROPHILS # (AUTO) 7.8 x10^3/uL (2.2-4.8); NEUTROPHILS % (AUTO) 66.6 % (42.0-75.0); PLATELET COUNT 244 X10^3/uL (150.0-450.0); RED BLOOD COUNT 5.28 X10^6/uL (4.7-6.0); RED CELL DISTRIBUTION WIDTH 13.6 % (11.6-16.5); WHITE BLOOD COUNT 11.7 X10^3/uL (3.6-10.0)
[2020-08-25 18:31] LABS: ALANINE AMINOTRANSFERASE 32 Units/L (12-78); ALBUMIN 3.7 g/dL (3.4-5.0); ALKALINE PHOSPHATASE 95 Units/L (46-116); ASPARTATE AMINO TRANSFERASE 14 Units/L (15-37); BLOOD UREA NITROGEN 13 mg/dL (7-18); CARBON DIOXIDE 22.2 mmol/L (21-32); CHLORIDE 102 mmol/L (98-107); COR NA(FOR HYPERGLY) 140 mmol/L (136-145); CREATININE 1.17 mg/dL (0.70-1.30); SODIUM 138 mmol/L (136-145); TOTAL PROTEIN 7.5 g/dL (6.4-8.2); eGFR NON BLACK RACES > 60 (>60)
[2020-08-25 18:52] LABS: BAND NEUTROPHILS % 2 % (0-10); PLATELET MORPHOLOGY COMMENT NORMAL (NORMAL)
[2020-08-25] MEDS ORDERED: VANCOMYCIN IV *PREMIX 2 G/400 ML BAG 2 G/400 ML PIGGYBACK IV ONE (19:30)
[2020-08-25] MEDS: GLUCOPHAGE XR 24-HR PO SCH (21:22)
[2020-08-25] MEDS: NexIUM PO SCH (21:22)
[2020-08-25] MEDS: WELLBUTRIN XL 150 MG (DAILY) PO SCH (21:23)
[2020-08-25] MEDS: CELEBREX PO SCH (21:23)
[2020-08-25] MEDS: DIFLUCAN 200 MG IV PREMIX* 200 MG/100 ML BAG IV SCH (21:24)
[2020-08-25] MEDS: LR 1000 ML IV 1,000 ML IV SCH (22:38)
[2020-08-25 23:40] VITALS: BMI 41.1
[2020-08-26] MEDS: LR 1000 ML IV 1,000 ML IV SCH ×3 (05:51→18:13)
[2020-08-26 06:12] LABS: BASOPHILS # (AUTO) 0.1 X10^3/uL (0.0-0.1); BASOPHILS % (AUTO) 1.1 % (0.2-1.0); EOSINOPHILS # (AUTO) 0.5 x10^3/uL (0.0-0.2); EOSINOPHILS % (AUTO) 4.8 % (0.9-2.9); HEMATOCRIT 44.1 % (42.0-54.0); HEMOGLOBIN 15.4 g/dL (13.5-18.0); LYMPHOCYTES # (AUTO) 2.9 X10^3/uL (1.3-2.9); LYMPHOCYTES % (AUTO) 26.9 % (21.0-51.0); MEAN CORPUSCULAR HGB CONC 34.9 g/dL (33.0-35.0); MEAN PLATELET VOLUME 7.3 fL (7.4-11.0); MONOCYTES % (AUTO) 9.5 % (0.0-13.0); NEUTROPHILS # (AUTO) 6.1 x10^3/uL (2.2-4.8); NEUTROPHILS % (AUTO) 57.7 % (42.0-75.0); PLATELET COUNT 242 X10^3/uL (150.0-450.0); RED BLOOD COUNT 5.13 X10^6/uL (4.7-6.0); RED CELL DISTRIBUTION WIDTH 13.5 % (11.6-16.5); WHITE BLOOD COUNT 10.6 X10^3/uL (3.6-10.0)
[2020-08-26 06:48] LABS: ALANINE AMINOTRANSFERASE 26 Units/L (12-78); ALBUMIN 3.1 g/dL (3.4-5.0); ALKALINE PHOSPHATASE 84 Units/L (46-116); ASPARTATE AMINO TRANSFERASE 7 Units/L (15-37); BLOOD UREA NITROGEN 13 mg/dL (7-18); CALCIUM 8.7 mg/dL (8.5-10.1); CARBON DIOXIDE 21.7 mmol/L (21-32); CHLORIDE 105 mmol/L (98-107); COR CA(FOR HYPOALB) 9.4 mg/dL (8.5-10.1); COR NA(FOR HYPERGLY) 139 mmol/L (136-145); CREATININE 0.91 mg/dL (0.70-1.30); SODIUM 138 mmol/L (136-145); TOTAL PROTEIN 6.4 g/dL (6.4-8.2); eGFR NON BLACK RACES > 60 (>60)
[2020-08-26] MEDS: DIFLUCAN 200 MG IV PREMIX* 200 MG/100 ML BAG IV SCH (09:34)
[2020-08-26] MEDS: WELLBUTRIN XL 150 MG (DAILY) PO SCH (09:34)
[2020-08-26] MEDS: CELEBREX PO SCH (09:34)
[2020-08-26] MEDS: GLUCOPHAGE XR 24-HR PO SCH ×2 (09:34→20:52)
[2020-08-26] MEDS: NexIUM PO SCH (09:34)
[2020-08-26] MEDS: VANCOMYCIN IV *PREMIX 1.5 G/300 ML BAG 1.5 G/300 ML PIGGYBACK IV SCH ×2 (10:45→20:51)
[2020-08-26] MEDS ORDERED: LOVENOX INJ 40 MG SYR SC SCH (21:00)
[2020-08-26] MEDS: LOVENOX INJ 40 MG SYR SC SCH (21:20)
[2020-08-27] MEDS: LR 1000 ML IV 1,000 ML IV SCH ×3 (02:29→18:21)
[2020-08-27 06:25] LABS: BASOPHILS % (AUTO) 0.3 % (0.2-1.0); EOSINOPHILS # (AUTO) 0.4 x10^3/uL (0.0-0.2); EOSINOPHILS % (AUTO) 4.6 % (0.9-2.9); HEMATOCRIT 43.4 % (42.0-54.0); HEMOGLOBIN 15.3 g/dL (13.5-18.0); LYMPHOCYTES # (AUTO) 2.6 X10^3/uL (1.3-2.9); LYMPHOCYTES % (AUTO) 32.1 % (21.0-51.0); MEAN CORPUSCULAR HEMOGLOBIN 30.2 pg (27.0-34.0); MEAN CORPUSCULAR HGB CONC 35.1 g/dL (33.0-35.0); MEAN PLATELET VOLUME 7.4 fL (7.4-11.0); MONOCYTES # (AUTO) 0.7 x10^3/uL (0.3-0.8); MONOCYTES % (AUTO) 8.1 % (0.0-13.0); NEUTROPHILS # (AUTO) 4.4 x10^3/uL (2.2-4.8); NEUTROPHILS % (AUTO) 54.9 % (42.0-75.0); PLATELET COUNT 241 X10^3/uL (150.0-450.0); RED BLOOD COUNT 5.05 X10^6/uL (4.7-6.0); RED CELL DISTRIBUTION WIDTH 13.3 % (11.6-16.5)
[2020-08-27 06:36] LABS: ALANINE AMINOTRANSFERASE 22 Units/L (12-78); ALBUMIN 3.2 g/dL (3.4-5.0); ALKALINE PHOSPHATASE 79 Units/L (46-116); ASPARTATE AMINO TRANSFERASE < 6 Units/L (15-37); BLOOD UREA NITROGEN 12 mg/dL (7-18); CALCIUM 8.6 mg/dL (8.5-10.1); CARBON DIOXIDE 22.4 mmol/L (21-32); CHLORIDE 107 mmol/L (98-107); COR CA(FOR HYPOALB) 9.2 mg/dL (8.5-10.1); COR NA(FOR HYPERGLY) 142 mmol/L (136-145); CREATININE 0.83 mg/dL (0.70-1.30); SODIUM 141 mmol/L (136-145); TOTAL PROTEIN 6.6 g/dL (6.4-8.2); eGFR NON BLACK RACES > 60 (>60)
[2020-08-27] MEDS ORDERED: PHARMACY COMMENT IV SCH (08:00)
[2020-08-27 08:30] LABS: CREATININE 0.89 mg/dL (0.70-1.30); VANCOMYCIN,TROUGH 14.7 ug/mL (15-20)
[2020-08-27] MEDS ORDERED: PHARMACY COMMENT IV ONE (08:30)
[2020-08-27] MEDS: DIFLUCAN 200 MG IV PREMIX* 200 MG/100 ML BAG IV SCH (10:02)
[2020-08-27] MEDS: GLUCOPHAGE XR 24-HR PO SCH ×2 (10:03→21:18)
[2020-08-27] MEDS: CELEBREX PO SCH (10:04)
[2020-08-27] MEDS: NexIUM PO SCH (10:04)
[2020-08-27] MEDS: WELLBUTRIN XL 150 MG (DAILY) PO SCH (10:04)
[2020-08-27] MEDS: VANCOMYCIN IV *PREMIX 1.5 G/300 ML BAG 1.5 G/300 ML PIGGYBACK IV SCH ×2 (11:30→21:22)
[2020-08-27] MEDS: LOVENOX INJ 40 MG SYR SC SCH (21:23)
[2020-08-28] MEDS: LR 1000 ML IV 1,000 ML IV SCH ×3 (01:07→18:18)
[2020-08-28] MEDS: VANCOMYCIN IV *PREMIX 1.5 G/300 ML BAG 1.5 G/300 ML PIGGYBACK IV SCH ×2 (09:23→20:33)
[2020-08-28] MEDS: DIFLUCAN 200 MG IV PREMIX* 200 MG/100 ML BAG IV SCH (09:24)
[2020-08-28] MEDS: GLUCOPHAGE XR 24-HR PO SCH ×2 (09:24→20:30)
[2020-08-28] MEDS: WELLBUTRIN XL 150 MG (DAILY) PO SCH (09:24)
[2020-08-28] MEDS: CELEBREX PO SCH (09:24)
[2020-08-28] MEDS: NexIUM PO SCH (09:24)
[2020-08-28] MEDS ORDERED: NS 1000 ML 1,000 ML ONE (13:02)
[2020-08-28] MEDS: LOVENOX INJ 40 MG SYR SC SCH (20:31)
[2020-08-29] MEDS: LR 1000 ML IV 1,000 ML IV SCH ×3 (03:08→12:38)
[2020-08-29 08:29] VITALS: BP 100/52
[2020-08-29] MEDS ORDERED: VIBRAMYCIN PO SCH (10:00)
[2020-08-29] MEDS: CELEBREX PO SCH (10:00)
[2020-08-29] MEDS ORDERED: RIFADIN PO SCH (10:00)
[2020-08-29] MEDS: NexIUM PO SCH (10:06)
[2020-08-29] MEDS: WELLBUTRIN XL 150 MG (DAILY) PO SCH (10:06)
[2020-08-29] MEDS: GLUCOPHAGE XR 24-HR PO SCH (10:06)
[2020-08-29] MEDS: DIFLUCAN PO SCH ×2 (10:07→10:23)
[2020-08-29] MEDS: VANCOMYCIN IV *PREMIX 1.5 G/300 ML BAG 1.5 G/300 ML PIGGYBACK IV SCH (10:14)
== END 2020-08-29 12:45 | disposition home or self-care (01) | DRG 603 ==
LOC: MED/SURG → OBSVTOIN 16:28
PROVIDERS: ADMIT Obstetrics & Gynecology Obstetrics; ATTEND Obstetrics & Gynecology Obstetrics
DX: B35.4 Tinea corporis; Z20.822 Contact with and (suspected) exposure to COVID-19; L03.116 Cellulitis of left lower limb; E11.65 Type 2 diabetes mellitus with hyperglycemia

== ENCOUNTER 2021-02-23 10:39 | Observation (INO) ==
[2021-02-23] MEDS ORDERED: LR 1,000 ML IV 1,000 ML IV ONE (10:47)
[2021-02-23] MEDS ORDERED: ZOFRAN INJ 4 MG VIAL IVP PRN (10:49)
[2021-02-23] MEDS ORDERED: DILAUDID INJ IVP PRN (10:49)
[2021-02-23 11:32] LABS: BASOPHILS # (AUTO) 0.1 X10^3/uL (0.0-0.1); BASOPHILS % (AUTO) 0.8 % (0.2-1.0); EOSINOPHILS # (AUTO) 0.2 x10^3/uL (0.0-0.2); EOSINOPHILS % (AUTO) 2.7 % (0.9-2.9); HEMOGLOBIN 16.4 g/dL (13.5-18.0); LYMPHOCYTES # (AUTO) 1.2 X10^3/uL (1.3-2.9); LYMPHOCYTES % (AUTO) 18.4 % (21.0-51.0); MEAN CORPUSCULAR HEMOGLOBIN 29.5 pg (27.0-34.0); MEAN CORPUSCULAR HGB CONC 35.7 g/dL (33.0-35.0); MEAN CORPUSCULAR VOLUME 82.6 fL (80.0-100.0); MEAN PLATELET VOLUME 7.3 fL (7.4-11.0); MONOCYTES % (AUTO) 14.5 % (0.0-13.0); NEUTROPHILS # (AUTO) 4.2 x10^3/uL (2.2-4.8); NEUTROPHILS % (AUTO) 63.6 % (42.0-75.0); PLATELET COUNT 205 X10^3/uL (150.0-450.0); RED BLOOD COUNT 5.58 X10^6/uL (4.7-6.0); RED CELL DISTRIBUTION WIDTH 13.5 % (11.6-16.5); WHITE BLOOD COUNT 6.6 X10^3/uL (3.6-10.0)
[2021-02-23 11:43] LABS: ALANINE AMINOTRANSFERASE 162 Units/L (12-78); ALBUMIN 3.6 g/dL (3.4-5.0); ALKALINE PHOSPHATASE 68 Units/L (46-116); AMYLASE 18 Units/L (25-115); ASPARTATE AMINO TRANSFERASE 131 Units/L (15-37); BLOOD UREA NITROGEN 10 mg/dL (7-18); CALCIUM 8.8 mg/dL (8.5-10.1); CARBON DIOXIDE 28.2 mmol/L (21-32); CHLORIDE 102 mmol/L (98-107); CHOL/HDL RATIO 6.4 (0.0-5.0); CHOLESTEROL 147 mg/dL (0-200); COR NA(FOR HYPERGLY) 141 mmol/L (136-145); CREATININE 0.89 mg/dL (0.70-1.30); HDL CHOLESTEROL 23 mg/dL (40-60); LIPASE 96 Units/L (73-393); SODIUM 140 mmol/L (136-145); TRIGLYCERIDES 329 mg/dL (0-150); eGFR NON BLACK RACES > 60 (>60)
[2021-02-23 11:51] LABS: PLATELET MORPHOLOGY COMMENT NORMAL (NORMAL)
[2021-02-23] MEDS: LR 1,000 ML IV 1,000 ML IV SCH ×3 (13:00→23:19)
--- NOTE | 2021-02-23 15:09 | CT ---
HISTORYINTRACTABLE NAUSEA/ VOMITINGSTUDYCT ABDOMEN/PELVIS W/O IV contrastCOMPARISONCT 02/18/2021TECHNIQUEMultiple axial images of the abdomen and pelvis were obtained from the lung bases to the pubic symphysis without the administration of IV contrast. Dose reduction techniques including Automated Exposure Control (AEC) and adjustment of mA and kV were utilized.FINDINGSThe visualized portions of the lung bases suggest mild atelectasis.Mild splenomegaly and hepatomegaly. There may be fatty infiltration of the liver. Hypodense lesion seen on prior contrast enhanced study in the right hepatic lobe is not seen on this study.Gallbladder appears normal. Mottle artifact slightly limits evaluation of the gallbladder lumen. Consider right upper quadrant ultrasound given patient's symptoms. No biliary ductal dilation is seen.No pancreatic abnormality is seen.The adrenal glands appear normal.No hydronephrosis or renal abnormality is seen. Ureters and bladder appear normal.No colonic abnormality is seen. Appendix is not seen but no pericecal inflammation is seen. There is likely mild wall thickening in the jejunum and mild increased fluid in air throughout the small bowel. Consider possible gastroenteritis or jejunitis.Small right inguinal hernia is seen containing fat.Abdominal aorta is normal in size.Shotty reactive mesenteric lymph nodes are seen.No free intraperitoneal air or fluid is seen.Probable benign bone island is seen in the right acetabular roof. Posterior element hypertrophy causes moderate spondylosis at T10-11, T9-10, and T8-9.IMPRESSIONProbable jejunitis or gastroenteritis changes. These findings are slightly less prominent than on prior study.No gallbladder abnormality is seen but mottle artifact slightly limits evaluation. Consider right upper quadrant ultrasound if there is clinical concern for gallbladder disease.Electronically signed by: Ralph Anderson (Feb 23, 2021 15:08:19)
--- NOTE | 2021-02-23 15:39 | MRI ---
HISTORYNECK PAIN for 2 weeks with numbness and tingling in both arms, no known injurySTUDYMRI CERVICAL W/O IV contrastCOMPARISONNoneTECHNIQUEMultiplan ar multisequence MRI of the cervical spine was obtained without IV contrast.FINDINGSThe cerebellar tonsils are normally positioned. No subluxation. No prevertebral edema. No abnormal bony signal. No abnormal cord signal. Motion limits many of the axial series. Patient was unable to tolerate further imaging.C2 -- C3: Slight posterior osteophytes cause no significant stenosis.C3 -- C4: Mild right-sided facet hypertrophy and posterior osteophytes cause moderate right neural foraminal narrowing. Slight central canal narrowing is seen with possible slight cord contact.C4 -- C5: Facet hypertrophy causes mild right neural foraminal narrowing.C5 -- C6: Posterior osteophytes and mild facet hypertrophy cause moderate to prominent right neural foraminal narrowing with little central canal narrowing and no left neural foraminal narrowing.C6 -- C7: No significant stenosis.C7 -- T1: No significant stenosis.IMPRESSIONMild posterior osteophytes and facet hypertrophy are seen at several levels. There is likely slight cord contact from these changes at C3-4 with moderate right neural foraminal narrowing.Posterior osteophytes and mild facet hypertrophy cause moderate to prominent right neural foraminal narrowing at C5-6.Electronically signed by: Ralph Anderson (Feb 23, 2021 15:38:17)
[2021-02-23] MEDS ORDERED: MAALOX or MYLANTA PO PRN (22:53)
[2021-02-24] MEDS ORDERED: POTASSIUM CHL 60 MEQ/NS 0.45% 500 ML IV PRN (01:44)
[2021-02-24] MEDS ORDERED: MICRO K EXTEN CAP 10 MEQ PO PRN (01:44)
[2021-02-24] MEDS ORDERED: POTASSIUM CHLORIDE LIQ 20 MEQ UDC PO PRN (01:44)
[2021-02-24] MEDS ORDERED: KLOR-CON PO PRN (01:44)
[2021-02-24] MEDS ORDERED: POTASSIUM CHL 40 MEQ/NS 0.45% 500 ML IV PRN (01:44)
[2021-02-24] MEDS ORDERED: K-DUR TAB 20 MEQ PO PRN (01:44)
[2021-02-24] MEDS ORDERED: K-RIDER 10 MEQ/NS 100 ML 10 MEQ/100 ML BAG IV PRN (01:44)
[2021-02-24] MEDS: LR 1,000 ML IV 1,000 ML IV SCH ×3 (06:00→19:46)
[2021-02-24 06:12] LABS: BASOPHILS % (AUTO) 0.7 % (0.2-1.0); EOSINOPHILS # (AUTO) 0.2 x10^3/uL (0.0-0.2); EOSINOPHILS % (AUTO) 3.5 % (0.9-2.9); HEMATOCRIT 40.7 % (42.0-54.0); HEMOGLOBIN 14.5 g/dL (13.5-18.0); LYMPHOCYTES # (AUTO) 1.5 X10^3/uL (1.3-2.9); LYMPHOCYTES % (AUTO) 22.2 % (21.0-51.0); MEAN CORPUSCULAR HEMOGLOBIN 29.5 pg (27.0-34.0); MEAN CORPUSCULAR HGB CONC 35.7 g/dL (33.0-35.0); MEAN CORPUSCULAR VOLUME 82.5 fL (80.0-100.0); MEAN PLATELET VOLUME 7.4 fL (7.4-11.0); MONOCYTES # (AUTO) 1.1 x10^3/uL (0.3-0.8); MONOCYTES % (AUTO) 15.8 % (0.0-13.0); NEUTROPHILS # (AUTO) 3.9 x10^3/uL (2.2-4.8); NEUTROPHILS % (AUTO) 57.8 % (42.0-75.0); PLATELET COUNT 176 X10^3/uL (150.0-450.0); RED BLOOD COUNT 4.93 X10^6/uL (4.7-6.0); RED CELL DISTRIBUTION WIDTH 13.2 % (11.6-16.5); WHITE BLOOD COUNT 6.7 X10^3/uL (3.6-10.0)
[2021-02-24 06:31] LABS: ALANINE AMINOTRANSFERASE 178 Units/L (12-78); ALBUMIN 2.8 g/dL (3.4-5.0); ALKALINE PHOSPHATASE 61 Units/L (46-116); AMYLASE 16 Units/L (25-115); ASPARTATE AMINO TRANSFERASE 110 Units/L (15-37); BLOOD UREA NITROGEN 9 mg/dL (7-18); CALCIUM 8.3 mg/dL (8.5-10.1); CARBON DIOXIDE 31.2 mmol/L (21-32); CHLORIDE 104 mmol/L (98-107); COR CA(FOR HYPOALB) 9.3 mg/dL (8.5-10.1); COR NA(FOR HYPERGLY) 144 mmol/L (136-145); CREATININE 0.84 mg/dL (0.70-1.30); LIPASE 110 Units/L (73-393); SODIUM 142 mmol/L (136-145); TOTAL PROTEIN 5.6 g/dL (6.4-8.2); eGFR NON BLACK RACES > 60 (>60)
[2021-02-24 07:00] LABS: BAND NEUTROPHILS % 3 % (0-10); METAMYELOCYTES % 1; PLATELET MORPHOLOGY COMMENT NORMAL (NORMAL)
[2021-02-24] MEDS ORDERED: AMBIEN PO PRN (09:30)
[2021-02-24] MEDS: PROTONIX INJ 40 MG VIAL IVP SCH (10:45)
[2021-02-24] MEDS: MICRO K EXTEN CAP 10 MEQ PO SCH (10:45)
[2021-02-24] MEDS: PEPCID TAB 20 MG PO SCH ×2 (10:45→20:00)
[2021-02-24] MEDS: WELLBUTRIN XL 150 MG (DAILY) PO SCH (10:45)
[2021-02-25] MEDS: LR 1,000 ML IV 1,000 ML IV SCH (02:44)
[2021-02-25 06:27] LABS: BASOPHILS # (AUTO) 0.1 X10^3/uL (0.0-0.1); BASOPHILS % (AUTO) 0.8 % (0.2-1.0); EOSINOPHILS # (AUTO) 0.2 x10^3/uL (0.0-0.2); HEMATOCRIT 38.9 % (42.0-54.0); HEMOGLOBIN 13.9 g/dL (13.5-18.0); LYMPHOCYTES # (AUTO) 2.1 X10^3/uL (1.3-2.9); LYMPHOCYTES % (AUTO) 30.1 % (21.0-51.0); MEAN CORPUSCULAR HEMOGLOBIN 29.6 pg (27.0-34.0); MEAN CORPUSCULAR HGB CONC 35.8 g/dL (33.0-35.0); MEAN CORPUSCULAR VOLUME 82.5 fL (80.0-100.0); MEAN PLATELET VOLUME 7.4 fL (7.4-11.0); MONOCYTES # (AUTO) 0.8 x10^3/uL (0.3-0.8); MONOCYTES % (AUTO) 12.2 % (0.0-13.0); NEUTROPHILS # (AUTO) 3.7 x10^3/uL (2.2-4.8); NEUTROPHILS % (AUTO) 53.9 % (42.0-75.0); PLATELET COUNT 171 X10^3/uL (150.0-450.0); RED BLOOD COUNT 4.72 X10^6/uL (4.7-6.0); RED CELL DISTRIBUTION WIDTH 13.3 % (11.6-16.5); WHITE BLOOD COUNT 6.9 X10^3/uL (3.6-10.0)
[2021-02-25 06:46] LABS: ALANINE AMINOTRANSFERASE 234 Units/L (12-78); ALBUMIN 2.7 g/dL (3.4-5.0); ALKALINE PHOSPHATASE 60 Units/L (46-116); ASPARTATE AMINO TRANSFERASE 144 Units/L (15-37); BLOOD UREA NITROGEN 8 mg/dL (7-18); CARBON DIOXIDE 26.2 mmol/L (21-32); CHLORIDE 108 mmol/L (98-107); SODIUM 142 mmol/L (136-145); TOTAL PROTEIN 5.4 g/dL (6.4-8.2); eGFR NON BLACK RACES > 60 (>60)
[2021-02-25] MEDS: PEPCID TAB 20 MG PO SCH (09:09)
[2021-02-25] MEDS: WELLBUTRIN XL 150 MG (DAILY) PO SCH (09:09)
[2021-02-25] MEDS: PROTONIX INJ 40 MG VIAL IVP SCH (09:09)
[2021-02-25] MEDS: MICRO K EXTEN CAP 10 MEQ PO SCH (09:09)
[2021-02-25 10:07] VITALS: BP 115/61
== END 2021-02-25 10:40 | disposition home or self-care (01) ==
LOC: MED/SURG → OBS
PROVIDERS: ADMIT Obstetrics & Gynecology Obstetrics; ATTEND Obstetrics & Gynecology Obstetrics